=== PATIENT | male | born 1990 | race Caucasian/White ===

== ENCOUNTER 2020-07-28 18:25 | Emergency (ER) | payer SELFPAY ==
[~2020-07-28] VITALS: Ht 170.2 cm; Wt 58.0 kg
[2020-07-28 18:28] VITALS: BP 120/83
--- NOTE | 2020-07-28 18:59 | NUR ---
ER RODRI FRANK AT BEDSIDE, PT ASSESSMENT, POC DISCUSSED AND QUESTIONS ANSWERED
--- NOTE | 2020-07-28 20:12 | NUR ---
Patient/Caregiver given discharge instructions and they have confirmed that they understand the instructions. Patient ambulatory with steady gait.
== END 2020-07-28 20:24 | disposition home or self-care (01) ==
LOC: ED 20:18
DX: S62.662A Nondisplaced fracture of distal phalanx of right middle finger, initial encounter for closed fracture (principal); S60.032A Contusion of left middle finger without damage to nail, initial encounter; W23.0XXA Caught, crushed, jammed, or pinched between moving objects, initial encounter; Y93.89 Activity, other specified; Y92.009 Unspecified place in unspecified non-institutional (private) residence as the place of occurrence of the external cause; Y99.8 Other external cause status
CPT/HCPCS: 11740; 99284